=== PATIENT | female | born 1985 | race Two or more races ===

== ENCOUNTER 2018-06-09 19:24 | Emergency (ER) | payer MEDICAID ==
[~2018-06-09] VITALS: Ht 175.3 cm; Wt 74.8 kg
[~2018-06-09 19:24] MED LIST: PRENTAB28 PO
[2018-06-09 20:16] LABS: Urine Bacteria FEW /hpf (None Seen); Urine Blood 1+ /uL (Negative); Urine Specific Gravity 1.021 (1.001-1.035); Urine WBC 1 /hpf (0 - 5)
[2018-06-09 20:44] LABS: Basophils # (auto) 0.1 uL; Basophils % (auto) 0.4 % (0.0-2.0); Eosinophils # (auto) 0.2 uL; Eosinophils % (auto) 1.4 % (0.0-7.0); Hematocrit 40.2 % (36.0-46.0); Hemoglobin 13.1 g/dL (12.2-16.2); Lymphocytes # (auto) 1.8 uL; Lymphocytes % (auto) 14.7 % (10.0-50.0); Mean Corpuscular Hemoglobin 28.3 pg (28.0-32.0); Mean Corpuscular Hgb Conc. 32.6 g/dL (32.0-36.0); Mean Corpuscular Volume 86.8 fL (80.0-100.0); Monocytes # (auto) 0.7 uL; Monocytes % (auto) 5.7 % (0.0-12.0); Neutrophils # (auto) 9.5 uL; Neutrophils % (auto) 77.8 % (37.0-80.0); Platelet Count (auto) 268 10^3/uL (140-450); Red Blood Cells 4.63 10^6/uL (4.0-5.20); Red Cell Distribution Width 13.3 % (11.8-14.3); White Blood Cell 12.2 10^3/uL (4.4-10.8)
[2018-06-09 20:59] LABS: Albumin 3.7 g/dL (3.4-5.0); BUN/Creatinine Ratio 19.2; Calcium 8.2 mg/dL (8.5-10.1); Potassium 3.1 mmol/L (3.5-5.1)
[2018-06-09 21:02] LABS: Bilirubin, Total 0.3 mg/dL (0.2-1.0)
[2018-06-10] MEDS ORDERED: KETOROLAC TROMETH 60MG/2ML VIAL IM ONE (06:30)
[2018-06-10 06:44] VITALS: BP 100/68
[2018-06-10] MEDS ORDERED: FAMOTIDINE 20 MG TAB PO ONE (08:00)
[2018-06-10] MEDS ORDERED: POTASSIUM EFFERVESENT TAB 25 MEQ PO ONE (08:00)
== END 2018-06-10 08:30 | disposition home or self-care (01) ==
LOC: EDBD 19:24 → ER 19:27
DX: K59.00 Constipation, unspecified (principal); E87.6 Hypokalemia; K76.0 Fatty (change of) liver, not elsewhere classified
CPT/HCPCS: 36415; 76705; 80053; 81001; 82150; 83690; 84702; 85025; 96372; 99284; J1885

== ENCOUNTER → 2019-02-02 | Outpatient (CLI) | payer OTHER | END | disposition home or self-care (01) | LOC: LAB 09:31 | PROVIDERS: ATTEND Preventive Medicine Preventive Medicine/Occupational Environmental Medicine | DX: Z02.1 Encounter for pre-employment examination (principal) | CPT/HCPCS: 36415; 86706; 86735; 86762; 86765; 86787 ==

== ENCOUNTER 2020-04-20 18:13 | Emergency (ER) | payer OTHER ==
[~2020-04-20] VITALS: Ht 149.9 cm; Wt 74.8 kg
[2020-04-20] MEDS ORDERED: ACETAMINOPHEN 500 MG TAB PO ONE (23:15)
[2020-04-21 01:16] VITALS: BP 104/68
== END 2020-04-21 01:20 | disposition home or self-care (01) ==
LOC: ER 18:15
DX: S16.1XXA Strain of muscle, fascia and tendon at neck level, initial encounter (principal); S40.012A Contusion of left shoulder, initial encounter; S40.011A Contusion of right shoulder, initial encounter; R51.9 Headache, unspecified; M62.838 Other muscle spasm; Z79.899 Other long term (current) drug therapy; W20.8XXA Other cause of strike by thrown, projected or falling object, initial encounter; Y93.89 Activity, other specified; Y92.89 Other specified places as the place of occurrence of the external cause; Y99.8 Other external cause status
CPT/HCPCS: 70450; 72125; 73030

== ENCOUNTER 2021-06-29 17:20 | Emergency (ER) | payer OTHER ==
[~2021-06-29] VITALS: Ht 149.9 cm; Wt 81.6 kg
[2021-06-29] MEDS ORDERED: TETANUS-DIPTH-ACEL PERTUSSIS 0.5ML SYR Tdap IM ONE (18:45)
[2021-06-29 19:50] VITALS: BP 112/71
== END 2021-06-29 21:56 | disposition home or self-care (01) ==
LOC: ER 17:20
DX: S61.232A Puncture wound without foreign body of right middle finger without damage to nail, initial encounter (principal); X58.XXXA Exposure to other specified factors, initial encounter; Y93.89 Activity, other specified; Y92.89 Other specified places as the place of occurrence of the external cause; Y99.8 Other external cause status
CPT/HCPCS: 90471; 90715

== ENCOUNTER 2023-03-21 21:51 | Emergency (ER) | payer MEDICAID, OTHER ==
[~2023-03-21] VITALS: Ht 149.9 cm; Wt 72.0 kg
[2023-03-21] MEDS ORDERED: FAMOTIDINE (10MG/ML) 2ML VL IV ONE (22:00)
[2023-03-21] MEDS ORDERED: ALBUTEROL SULF 2.5 MG/0.5ML(0.5%) NEB SOLN NEB ONE (22:00)
[2023-03-21] MEDS ORDERED: EPINEPHrine HCL 0.5 ML NEB NEB ONE (22:00)
[2023-03-21] MEDS ORDERED: methylPREDNISolone SOD SUCC 125 MG/2 ML VL IV ONE (22:00)
[2023-03-21] MEDS ORDERED: diphenhdrAMINE HCL 50 MG/1 ML VL IV ONE (22:00)
[2023-03-21] MEDS ORDERED: IPRATROPIUM BROM 0.5 MG/2.5ML INH SOL NEB ONE (22:00)
[2023-03-21 22:26] LABS: Basophils # (auto) 0.1 10 ^3/uL (0-0.2); Basophils % (auto) 0.4 % (0.0-2.0); Eosinophils # (auto) 0.2 10 ^3/uL (0-0.8); Eosinophils % (auto) 1.4 % (0.0-7.0); Hematocrit 38.6 % (36.0-46.0); Hemoglobin 12.5 g/dL (12.2-16.2); Lymphocytes # (auto) 4.9 10 ^3/uL (0.4-5.4); Lymphocytes % (auto) 34.3 % (10.0-50.0); Mean Corpuscular Hemoglobin 27.8 pg (28.0-32.0); Mean Corpuscular Hgb Conc. 32.4 g/dL (32.0-36.0); Mean Corpuscular Volume 85.7 fL (80.0-100.0); Monocytes # (auto) 0.9 10 ^3/uL (0-1.3); Monocytes % (auto) 6.2 % (0.0-12.0); Neutrophils # (auto) 8.2 10 ^3/uL (1.6-8.6); Neutrophils % (auto) 57.7 % (37.0-80.0); Nucleated Red Blood Cells % 0.1 %; Red Cell Distribution Width 14.4 % (11.8-14.3); White Blood Cell 14.2 10^3/uL (4.4-10.8)
[2023-03-21 22:35] LABS: INR 0.92 (0.9-1.15); Partial Thromboplastin Time 26.9 SEC (24.5-34.5); Prothrombin Time 9.7 sec (9.3-11.8)
[2023-03-21 22:37] LABS: Alanine Aminotransferase 93 U/L (7-40); Albumin 4.8 g/dL (3.2-4.8); Alkaline Phosphatase 90 U/L (46-116); Anion Gap 8 (5-15); Aspartate Aminotransferase 38 U/L (13-40); BUN/Creatinine Ratio 11.9 (10.0-20.0); Bilirubin, Total 0.5 mg/dL (0.2-1.0); Blood Urea Nitrogen 10 mg/dL (9-23); Carbon Dioxide 26 mmol/L (20-30); Chloride 103 mmol/L (98-107); Glucose 93 mg/dL (74-106); Magnesium 2.1 mg/dL (1.6-2.6); Potassium 3.3 mmol/L (3.5-5.1); Sodium 137 mmol/L (136-145); Total Protein 7.7 g/dL (5.7-8.2)
[2023-03-22] MEDS ORDERED: DIPH25CA66 PO (02:42)
[2023-03-22] MEDS ORDERED: PRED20TA2 PO ×2 (02:46→03:07)
[2023-03-22 04:00] VITALS: BP 111/67; PULSE 87; RESP 18; TEMP 98.4; O2SAT 95
== END 2023-03-22 04:06 | disposition home or self-care (01) ==
LOC: ER 21:51
DX: T78.49XA Other allergy, initial encounter (principal); Z79.899 Other long term (current) drug therapy; X58.XXXA Exposure to other specified factors, initial encounter
CPT/HCPCS: 36415; 71045; 80053; 83735; 83880; 84484; 85025; 85610; 85730; 93005; 94640; 96374; 96375; 99285; J1200; J2930; J3490

== ENCOUNTER → 2023-06-07 | Outpatient (CLI) | payer MEDICAID ==
[~2023-06-07] MED LIST changes: +DIPH25CA66 PO; +PRED20TA2 PO
[2023-06-07 09:47] LABS: Basophils # (auto) 0.1 10 ^3/uL (0-0.2); Basophils % (auto) 0.6 % (0.0-2.0); Eosinophils # (auto) 0.2 10 ^3/uL (0-0.8); Eosinophils % (auto) 1.3 % (0.0-7.0); Hematocrit 38.5 % (36.0-46.0); Hemoglobin 12.8 g/dL (12.2-16.2); Lymphocytes # (auto) 3.9 10 ^3/uL (0.4-5.4); Lymphocytes % (auto) 30.6 % (10.0-50.0); Mean Corpuscular Hemoglobin 28.5 pg (28.0-32.0); Mean Corpuscular Hgb Conc. 33.2 g/dL (32.0-36.0); Mean Corpuscular Volume 85.7 fL (80.0-100.0); Monocytes # (auto) 0.8 10 ^3/uL (0-1.3); Monocytes % (auto) 6.1 % (0.0-12.0); Neutrophils # (auto) 7.7 10 ^3/uL (1.6-8.6); Neutrophils % (auto) 61.4 % (37.0-80.0); Red Blood Cells 4.49 10^6/uL (4.0-5.20); Red Cell Distribution Width 13.9 % (11.8-14.3); White Blood Cell 12.6 10^3/uL (4.4-10.8)
[2023-06-07 10:19] LABS: Follicle Stimulating Hormone 3.08 IU/L (SEE BELOW)
== END | disposition home or self-care (01) ==
LOC: LAB 09:23
PROVIDERS: ATTEND Obstetrics & Gynecology
DX: N92.6 Irregular menstruation, unspecified (principal)
CPT/HCPCS: 36415; 82670; 83001; 83002; 83036; 84403; 84443; 85025

== ENCOUNTER 2023-10-14 12:39 | Emergency (ER) | payer MEDICAID ==
[~2023-10-14] VITALS: Ht 149.9 cm; Wt 79.3 kg
[2023-10-14 13:44] LABS: Basophils # (auto) 0.1 10 ^3/uL (0-0.2); Basophils % (auto) 0.6 % (0.0-2.0); Eosinophils # (auto) 0.1 10 ^3/uL (0-0.8); Eosinophils % (auto) 0.8 % (0.0-7.0); Hematocrit 39.4 % (36.0-46.0); Hemoglobin 13.3 g/dL (12.2-16.2); Lymphocytes # (auto) 1.7 10 ^3/uL (0.4-5.4); Lymphocytes % (auto) 18.5 % (10.0-50.0); Mean Corpuscular Hemoglobin 28.5 pg (28.0-32.0); Mean Corpuscular Hgb Conc. 33.8 g/dL (32.0-36.0); Mean Corpuscular Volume 84.5 fL (80.0-100.0); Monocytes # (auto) 0.9 10 ^3/uL (0-1.3); Monocytes % (auto) 9.9 % (0.0-12.0); Neutrophils # (auto) 6.6 10 ^3/uL (1.6-8.6); Neutrophils % (auto) 70.2 % (37.0-80.0); Red Blood Cells 4.66 10^6/uL (4.0-5.20); Red Cell Distribution Width 13.6 % (11.8-14.3); White Blood Cell 9.4 10^3/uL (4.4-10.8)
[2023-10-14 13:55] LABS: Urine Bacteria None Seen /hpf (None Seen)
[2023-10-14] MEDS: KETOROLAC TROMETH 60MG/2ML VIAL IM ONE (13:56)
[2023-10-14 14:08] LABS: Urine Blood 2+ /uL (Negative); Urine Clarity Clear (Clear); Urine Color Colorless (Yellow); Urine Protein, UAD Negative (Negative); Urine Specific Gravity 1.011 (1.001-1.035); Urine Urobilinogen Normal (Negative); Urine WBC 1 /hpf (0 - 5)
[2023-10-14 14:37] LABS: Chloride 107 mmol/L (98-107); Potassium 3.8 mmol/L (3.5-5.1); Sodium 136 mmol/L (136-145)
[2023-10-14 14:38] LABS: Anion Gap 8 (5-15); Carbon Dioxide 21 mmol/L (20-30)
[2023-10-14 14:39] LABS: Calcium 9.1 mg/dL (8.7-10.4)
[2023-10-14 14:43] LABS: Glucose 119 mg/dL (74-106)
[2023-10-14 14:44] LABS: Blood Urea Nitrogen 8 mg/dL (9-23)
[2023-10-14 15:03] VITALS: TEMP 98.3; O2SAT 97
[2023-10-14] MEDS: ONDANSETRON HCL 4 MG/2 ML VIAL IV ONE (15:31)
[2023-10-14] MEDS: HYDROmorphone HCL 2 MG/ML VL/or syr IV ONE (15:33)
[2023-10-14] MEDS: SODIUM CHLORIDE 0.9% 1,000 ML IV ONE (15:39)
[2023-10-14 16:03] VITALS: BP 98/66; PULSE 65; RESP 18
[2023-10-14] MEDS: TAMSULOSIN HYDROCHLORIDE 0.4 MG CAP PO ONE (16:06)
[2023-10-14] MEDS ORDERED: TAMS-35 PO (16:16)
[2023-10-14] MEDS ORDERED: TRAM-626 PO (16:16)
[2023-10-14] MEDS ORDERED: HYDR-4902 PO (16:19)
== END 2023-10-14 16:38 | disposition home or self-care (01) ==
LOC: ER 12:39 → EEVIPCON 12:39 → ER 16:34
DX: N20.0 Calculus of kidney (principal); R05.9 Cough, unspecified; R09.81 Nasal congestion
CPT/HCPCS: 36415; 71046; 74176; 80048; 81001; 84484; 85025; 96361; 96372; 96374; 96375; 99285; J1170; J1885; J2405; J7030

== ENCOUNTER 2023-10-15 13:47 | Inpatient (IN) | payer MEDICAID ==
[~2023-10-15] VITALS: Ht 149.9 cm; Wt 70.5 kg
[~2023-10-15 13:47] MED LIST changes: +HYDR-4902 PO; +TAMS-35 PO
[2023-10-15 14:37] LABS: Basophils # (auto) 0 10 ^3/uL (0-0.2); Basophils % (auto) 0.5 % (0.0-2.0); Eosinophils # (auto) 0.1 10 ^3/uL (0-0.8); Eosinophils % (auto) 1.3 % (0.0-7.0); Hematocrit 36.1 % (36.0-46.0); Hemoglobin 12.1 g/dL (12.2-16.2); Lymphocytes # (auto) 2.6 10 ^3/uL (0.4-5.4); Lymphocytes % (auto) 25.9 % (10.0-50.0); Mean Corpuscular Hemoglobin 28.2 pg (28.0-32.0); Mean Corpuscular Hgb Conc. 33.5 g/dL (32.0-36.0); Mean Corpuscular Volume 84.4 fL (80.0-100.0); Monocytes # (auto) 0.7 10 ^3/uL (0-1.3); Monocytes % (auto) 6.5 % (0.0-12.0); Neutrophils # (auto) 6.7 10 ^3/uL (1.6-8.6); Neutrophils % (auto) 65.8 % (37.0-80.0); Red Blood Cells 4.28 10^6/uL (4.0-5.20); Red Cell Distribution Width 13.9 % (11.8-14.3); White Blood Cell 10.1 10^3/uL (4.4-10.8)
[2023-10-15 14:48] LABS: Chloride 107 mmol/L (98-107); Potassium 3.7 mmol/L (3.5-5.1); Sodium 137 mmol/L (136-145)
[2023-10-15 14:49] LABS: Anion Gap 6 (5-15); Carbon Dioxide 24 mmol/L (20-30)
[2023-10-15 14:54] LABS: Glucose 116 mg/dL (74-106)
[2023-10-15] MEDS ORDERED: cefTRIAXone SOD 1,000 MG VL IM ONE (15:00)
[2023-10-15] MEDS: KETOROLAC TROMETH 30 MG/ML 1ML VIAL IV ONE (15:16)
[2023-10-15] MEDS: SODIUM CHLORIDE 0.9% 1,000 ML IV ONE (15:16)
[2023-10-15 15:21] VITALS: PULSE 110; RESP 18; O2SAT 97
[2023-10-15 15:30] LABS: BUN/Creatinine Ratio 13.5 (10.0-20.0); Blood Urea Nitrogen 10 mg/dL (9-23)
[2023-10-15 15:30] LABS: Amphetamine Screen, Urine Neg (NEGATIVE); Barbiturate Scree,Urine Neg (NEGATIVE); Benzodiazephine Screen, Urine Neg (NEGATIVE); Cannabinoid Screen, Urine Neg (NEGATIVE); Cocaine Screen, Urine Neg (NEGATIVE); Opiate Scree,Urine Neg (NEGATIVE); Phencyclidine Screen, Urine Neg (NEGATIVE)
[2023-10-15 15:34] LABS: Urine Bacteria FEW /hpf (None Seen); Urine Blood TRACE /uL (Negative); Urine Clarity Clear (Clear); Urine Color Colorless (Yellow); Urine Protein, UAD Negative (Negative); Urine Specific Gravity 1.002 (1.001-1.035); Urine Urobilinogen Normal (Negative); Urine WBC 1 /hpf (0 - 5)
[2023-10-15] MEDS ORDERED: ACETAMINOPHEN 325 MG TAB PO PRN (17:30)
[2023-10-15] MEDS ORDERED: DOCUSATE SOD 100 MG CAP PO PRN (17:30)
[2023-10-15 19:56] VITALS: PULSE 67; RESP 16; O2SAT 100
[2023-10-15] MEDS: LACTATED RINGER'S 1,000 ML IV SCH (20:00)
[2023-10-15 21:56] VITALS: BP 113/76; PULSE 77; RESP 18; TEMP 98.1; O2SAT 97
[2023-10-15] MEDS: SODIUM CHLOR 0.9% PF (SALINE LOCK) 10ML VIAL/SYR IV SCH (23:29)
[2023-10-15] MEDS: MORPHINE SULFATE INJ 2 MG/ml SYRG IV PRN (23:54)
[2023-10-16] VITALS (8 sets, daily range): BP systolic 88–119; BP diastolic 53–74; PULSE 60–79; RESP 16–19; TEMP 97.8–98.5; O2SAT 96–99
[2023-10-16] MEDS: KETOROLAC TROMETH 30 MG/ML 1ML VIAL IV PRN (08:57)
[2023-10-16] MEDS: ENOXAPARIN SOD 40 MG/0.4 ML SYRINGE SC SCH (11:56)
[2023-10-16] MEDS: TAMSULOSIN HYDROCHLORIDE 0.4 MG CAP PO SCH (18:01)
[2023-10-16] MEDS: MANNITOL FTV 25% 12.5 GM/50 ML 50 ML IV ONE (23:14)
[2023-10-17] VITALS (9 sets, daily range): BP systolic 93–126; BP diastolic 56–74; PULSE 64–99; RESP 16–20; TEMP 97.5–98.5; O2SAT 95–100
[2023-10-17 09:56] LABS: Hepatitis B Surface Antigen Negative (Negative)
[2023-10-17] MEDS: SODIUM CHLORIDE 0.9% 1,000 ML IV SCH (10:00)
[2023-10-17] MEDS: PANTOPRAZOLE 40 MG TAB PO ONE (10:15)
[2023-10-17 10:18] LABS: Hepatitis C Antibody Negative (Negative)
[2023-10-17] MEDS ORDERED: traMADol HCL 50 MG TAB PO PRN (12:45)
[2023-10-17] MEDS ORDERED: MORPHINE SULFATE INJ 2 MG/ml SYRG IV PRN (12:45)
[2023-10-17] MEDS ORDERED: fentaNYL CITRATE 100 MCG/2 ML VL ONE (15:08)
[2023-10-17] MEDS ORDERED: MIDAZOLAM HCL 2MG/2ML 2ml VIAL (1mg/ml) ONE (15:08)
[2023-10-17] MEDS ORDERED: ONDANSETRON HCL 4 MG/2 ML VIAL ONE (15:09)
[2023-10-17] MEDS ORDERED: KETOROLAC TROMETH 30 MG/ML 1ML VIAL ONE (15:09)
[2023-10-17] MEDS ORDERED: DexAMETHasone SOD PHOS 10MG/1ML VIAL INJ ONE (15:09)
[2023-10-17] MEDS ORDERED: ePHEDrine SULFATE 50 MG/ML AMP ONE (15:09)
[2023-10-17] MEDS ORDERED: GLYCOPYRROLATE 0.2 MG/ML 1ML VIAL ONE (15:09)
[2023-10-17] MEDS ORDERED: LIDOCAINE 2% (LOCAL ANESTH.) PF 5ml SDV ONE (15:09)
[2023-10-17] MEDS ORDERED: PROPOFOL 10 MG/ML 20 ML IV ONE (15:09)
[2023-10-17] MEDS: SUCCINYLCHOLINE CHLORIDE 20 MG/ML 10ML VIAL IV ONE (15:16)
[2023-10-17] MEDS: FAMOTIDINE (10MG/ML) 2ML VL IV ONE (15:16)
[2023-10-17] MEDS: CIPROFLOXACIN 400MG/200ML 200 ML IV ONE (15:22)
[2023-10-17] MEDS ORDERED: MEPERIDINE HCL (50 MG/ML) 1 ML VIAL ONE (15:41)
[2023-10-17] MEDS: MANNITOL FTV 25% 12.5 GM/50 ML 50 ML IV ONE (16:15)
[2023-10-17] MEDS: ONDANSETRON HCL 4 MG/2 ML VIAL IV ONE (16:30)
[2023-10-17] MEDS ORDERED: HYDROmorphone HCL 2 MG/ML VL/or syr IV PRN (16:30)
[2023-10-17 19:10] LABS: Chloride 107 mmol/L (98-107); Potassium 3.6 mmol/L (3.5-5.1); Sodium 138 mmol/L (136-145)
[2023-10-17 19:11] LABS: Anion Gap 6 (5-15); Carbon Dioxide 25 mmol/L (20-30)
[2023-10-17 19:16] LABS: Blood Urea Nitrogen 7 mg/dL (9-23); Glucose 129 mg/dL (74-106)
[2023-10-18 01:00] VITALS: BP 108/63; PULSE 80; RESP 16; TEMP 98.1; O2SAT 97
[2023-10-18 05:00] VITALS: BP 105/64; PULSE 71; RESP 16; TEMP 98.6; O2SAT 95
[2023-10-18] MEDS: PANTOPRAZOLE 40 MG TAB PO SCH (06:16)
[2023-10-18 06:56] LABS: Chloride 107 mmol/L (98-107); Potassium 4.1 mmol/L (3.5-5.1); Sodium 139 mmol/L (136-145)
[2023-10-18 06:57] LABS: Anion Gap 7 (5-15); Calcium 9.2 mg/dL (8.7-10.4); Carbon Dioxide 25 mmol/L (20-30)
[2023-10-18 07:02] LABS: Blood Urea Nitrogen 8 mg/dL (9-23); Glucose 123 mg/dL (74-106)
[2023-10-18 08:00] VITALS: PULSE 87; RESP 20; O2SAT 97
[2023-10-18 09:00] VITALS: BP 113/68; PULSE 70; RESP 20; TEMP 97.7; O2SAT 100
[2023-10-18] MEDS ORDERED: LEVO500T91 PO (11:42)
[2023-10-18] MEDS ORDERED: KETO10TA PO (11:42)
[2023-10-18 13:00] VITALS: BP 95/63; PULSE 94; RESP 20; TEMP 98.3; O2SAT 98
[2023-10-18 14:52] VITALS: BP 120/68; PULSE 78; RESP 20; TEMP 98.3; O2SAT 97
== END 2023-10-18 16:00 | disposition home or self-care (01) | DRG 463 ==
LOC: EEVIPCON 13:47 → ER 13:51 → OVERFLOW 17:30 → CENTRAL 21:49
PROVIDERS: ADMIT Internal Medicine; ATTEND Emergency Medicine
PROC: 0TF7XZZ Fragmentation in Left Ureter, External Approach (ICD-10-PCS; principal; 2023-10-17 15:26)
DX: N13.6 Pyonephrosis (principal); K76.0 Fatty (change of) liver, not elsewhere classified; R16.0 Hepatomegaly, not elsewhere classified; I95.9 Hypotension, unspecified; F41.9 Anxiety disorder, unspecified; N28.1 Cyst of kidney, acquired; E66.9 Obesity, unspecified; Z79.899 Other long term (current) drug therapy; Z87.442 Personal history of urinary calculi; Z82.0 Family history of epilepsy and other diseases of the nervous system; Z83.3 Family history of diabetes mellitus
CPT/HCPCS: 36415; 80048; 80307; 81001; 81025; 82105; 84702; 85025; 86803; 87086; 87340; G0378; J0330; J1100; J1885; J2001; J2250; J2405; J2704; J3490

== ENCOUNTER → 2023-11-02 | Outpatient (CLI) | payer MEDICAID ==
[~2023-11-02] MED LIST changes: -DIPH25CA66 PO; +KETO10TA PO; +LEVO500T91 PO; -PRED20TA2 PO; -PRENTAB28 PO
[2023-11-02 15:12] LABS: Basophils # (auto) 0 10 ^3/uL (0-0.2); Basophils % (auto) 0.5 % (0.0-2.0); Eosinophils # (auto) 0.1 10 ^3/uL (0-0.8); Eosinophils % (auto) 1.5 % (0.0-7.0); Hematocrit 35.1 % (36.0-46.0); Hemoglobin 11.8 g/dL (12.2-16.2); Lymphocytes # (auto) 2.6 10 ^3/uL (0.4-5.4); Lymphocytes % (auto) 26.1 % (10.0-50.0); Mean Corpuscular Hemoglobin 28.1 pg (28.0-32.0); Mean Corpuscular Hgb Conc. 33.6 g/dL (32.0-36.0); Mean Corpuscular Volume 83.4 fL (80.0-100.0); Monocytes # (auto) 0.5 10 ^3/uL (0-1.3); Monocytes % (auto) 5.5 % (0.0-12.0); Neutrophils # (auto) 6.5 10 ^3/uL (1.6-8.6); Neutrophils % (auto) 66.4 % (37.0-80.0); Red Blood Cells 4.21 10^6/uL (4.0-5.20); Red Cell Distribution Width 13.9 % (11.8-14.3); White Blood Cell 9.8 10^3/uL (4.4-10.8)
[2023-11-02 15:55] LABS: Alanine Aminotransferase 72 U/L (7-40); Albumin 4.5 g/dL (3.2-4.8); Alkaline Phosphatase 97 U/L (46-116); Anion Gap 8 (5-15); Aspartate Aminotransferase 38 U/L (13-40); BUN/Creatinine Ratio 12.9 (10.0-20.0); Blood Urea Nitrogen 9 mg/dL (9-23); Calcium 9.5 mg/dL (8.7-10.4); Carbon Dioxide 24 mmol/L (20-30); Chloride 108 mmol/L (98-107); Cholesterol 193 mg/dL (< 200); Glucose 107 mg/dL (74-106); HDL Cholesterol 42 mg/dL (40-59); LDL Cholesterol 139 mg/dL (< 100); Potassium 3.8 mmol/L (3.5-5.1); Sodium 140 mmol/L (136-145); Triglycerides 64 mg/dL (< 150)
[2023-11-02 15:56] LABS: Bilirubin, Total 0.9 mg/dL (0.2-1.0); Total Protein 7.4 g/dL (5.7-8.2)
== END | disposition home or self-care (01) ==
LOC: LAB 14:28
PROVIDERS: ATTEND Nurse Practitioner
DX: I10 Essential (primary) hypertension (principal); R73.9 Hyperglycemia, unspecified; E78.5 Hyperlipidemia, unspecified; E03.9 Hypothyroidism, unspecified
CPT/HCPCS: 36415; 80053; 80061; 83036; 84443; 85025

== ENCOUNTER 2024-09-09 06:23 | Emergency (ER) | payer MEDICAID ==
[~2024-09-09] VITALS: Ht 149.9 cm; Wt 72.7 kg
[2024-09-09] MEDS: KETOROLAC TROMETH 30 MG/ML 1ML VIAL IM ONE (06:45)
--- NOTE | 2024-09-09 07:01 | ED.PDOC ---
General HPI Comments 39 y/o F, with PMHx of kidney stones presents to the ED for CC of left lower back, radiating to left upper thigh. no fever or nausea, or vomiting. No other symptoms or modifying factors present at this time. pain is worsened by lateral rotation, improves with flexion of torso. Chief Complaint: Flank Pain Time Seen by MD: 06:50 Primary Care Provider: ? Reviewed notes: Nurses Notes, Medications, Allergies Allergies: Coded Allergies: NO KNOWN ALLERGIES (Unverified , 10/04/14) Home Meds Active Scripts Ketorolac Tromethamine (Ketorolac Tromethamine) 10 Mg Tab, 1 TAB PO TID PRN for 5 Days, #15 TAB Prov:BREANNA EGAN MD 10/18/23 Levofloxacin Hemihydrate (LEVAQUIN 500 MG) 500 Mg Tab, 500 MG PO DAILY for 5 Days, #5 TAB Prov:BREANNA EGAN MD 10/18/23 Tamsulosin Hcl (Flomax) 0.4 Mg Cap, 1 CAP PO DAILY, #20 CAP Prov:LEONIE GARRISON 10/14/23 Hydrocodone-Acetaminophen (Hydrocodone Bitartrate/AC 5-325 mg) 1 Tab Tab, 1 TAB PO TID, #14 TAB Prov:LEONIE GARRISON 10/14/23 Information Source: Patient Mode of Arrival: Ambulatory Severity: Moderate Inability to void: None Timing: Days Duration: Since onset Prehospital treatment: None Onset: Spontaneous Symptoms: None History of: Kidney stone Location: (L)Flank Modifying factors: None associated signs and symptoms: Flank Pain, Back Pain Past Medical History PAST MEDICAL HISTORY: Anxiety, Kidney Stones Surgical History: Denies all surgeries OUTPATIENT RECEPTIONIST History: Denies all OUTPATIENT RECEPTIONIST Hx Family History Family History: Reviewed,noncontributory to illness Social History Smoker: Non-Smoker Alcohol: Denies ETOH Use Drugs: Denies Drug Use Lives In: Home Constitutional: denies: chills, diaphoresis, fatigue, fever, malaise, sweats, weakness, others EENTM: denies: blurred vision, double vision, ear bleeding, ear discharge, ear drainage, ear pain, ear ringing, eye pain, eye redness, hearing loss, mouth pain, mouth swelling, nasal discharge, nose bleeding, nose congestion, nose pain, photophobia, tearing, throat pain, throat swelling, voice changes, others Respiratory: denies: cough, hemoptysis, orthopnea, SOB at rest, shortness of breath, SOB with excertion, stridor, wheezing, others Cardiovascular: denies: chest pain, dizzy spells, diaphoresis, Dyspnea on exertion, edema, irregular heart beat, left arm pain, lightheadedness, palpitations, PND, syncope, others Gastrointestinal: denies: abdomen distended, abdominal pain, blood streaked bowels, constipated, diarrhea, dysphagia, difficulty swallowing, hematemesis, melena, nausea, poor appetite, poor fluid intake, rectal bleeding, rectal pain, vomiting, others Genitourinary: reports: flank pain; denies: abnormal vagina bleeding, burning, dyspareunia, dysuria, frequency, hematuria, incontinence, pain, , vagina discharge, urgency, others Neurological: denies: dizziness, fainting, headache, left sided numbness, left sided weakness, numbness, paresthesia, pre-existing deficit, right sided numbness, right sided weakness, seizure, speech problems, tingling, tremors, weakness, others Musculoskeletal: reports: back pain; denies: gout, joint pain, joint swelling, muscle pain, muscle stiffness, neck pain, others Integumetry: denies: bruises, change in color, change in hair/nails, dryness, laceration, lesions, lumps, rash, wounds, others Allergic/Immunocompromised: denies: Difficulty Healing, Frequent Infections, Hives, Itching, others Hematologic/Lymphatic: denies: anemia, blood clots, easy bleeding, easy bruising, swollen glands, others Endocrine: denies: excessive hunger, excessive sweating, excessive thirst, excessive urination, flushing, intolerance to cold, intolerance to heat, unexplained weight gain, unexplained weight loss, others Psychiatric: denies: anxiety, bipolar disorder, depression, hopeless, panic disorder, schizophrenia, sleepless, suicidal, others All Other Systems: Reviewed and Negative Physical Exam General Appearance: No Apparent Distress, Normal HEENT: Normal ENT Inspection, Pharynx Normal Neck: Full Range of Motion, Non-Tender, Normal, Normal Inspection Respiratory: Chest Non-Tender, Lungs Clear, No Accessory Muscle Use, No Respiratory Distress, Normal Breath Sounds Cardiovascular: No Edema, No Murmur, No Gallop, Normal Peripheral Pulses, Regular Rate/Rhythm Breast Exam: Deferred Gastrointestinal: No Organomegaly, Non Tender, No Pulsatile Mass, Normal Bowel Sounds, Soft Genitalia: Deferred Pelvic: Deferred Rectal: Deferred Extremities: No calf tenderness, Normal capillary refill, Normal inspection, Normal range of motion, Non-tender, No pedal edema Musculoskeletal : Location: Left (lumbar) Apperance: Normal Neurologic: Alert, director of labor and delivery II-XII nml as Tested, No Motor Deficits, Normal Affect, Normal Mood, No Sensory Deficits Cerebellar Function: Normal Reflexes: Normal Skin: Dry, Normal Color, Warm Lymphatic: No Adenopathy Was a procedure done? Was a procedure done?: No Differential Diagnosis Kidney stone (Female): N/A Kidney stone (Male): N/A Penile/Scrotal: N/A Urinary Problem (Male): N/A Urinary Problem (Female): Pyelonephritis, Urinary retention, Urolithiasis, UTI, Other (back strain, sciatica, herniated disc,zoster) X-Ray, Labs, Meds, VS Vital Signs Date Time Temp Pulse Resp B/P (MAP) Pulse Ox O2 Delivery O2 Flow Rate FiO2 09/09/24 06:23 98.2 73 18 125/71 (89) 98 98.2 Lab Test 09/09/24 08:00 Range/Units Urine Color Light-yellow Yellow Urine Clarity Clear Clear Urine pH 6.0 5.0-9.0 Urine Specific [place] 1.012 1.001-1.035 Urine Protein Negative Negative Urine Ketones Negative Negative Urine Blood Negative Negative /uL Urine Nitrite Negative Negative Urine Bilirubin Negative Negative Urine Urobilinogen Normal Negative mg/dL Urine Leukocyte Esterase Negative Negative /uL Urine RBC 1 0 - 4 /hpf Urine Microscopic WBC 2 0-5 /HPF Urine Squamous Epithelial Cells Few <5 /hpf Urine Bacteria Few H None Seen /hpf Urine Glucose Normal Normal mg/dL Urine Test Negative Negative Current Medications Medications (Trade) Dose Ordered Sig/Beck Route Start Time Stop Time Status Last Admin Ketorolac Tromethamine (Toradol Injection) 15 mg ONCE ONCE IM 09/09/24 06:45 09/09/24 06:47 DC 09/09/24 06:45 Time of 1ST Reevaluation: 07:20 Reevaluation 1ST: Unchanged Time of 2ND Reevaluation: 08:39 Reevaluation 2ND: Improved Patient Education/Counseling: Diagnosis, Treatment, Prognosis, Need For Follow Up Family Education/Counseling: No Family Present Comments pt dopes not have zoster lesions, she has no urinary symptoms. her urine is cl ear. l spine xray is unremarkable. her symptoms are consistent with lumbar pain with radiculopathy. i will start her on motrin and flexeril. she is to follow up with her doctor Additional Information Previous visits reviewed: 10/14/18 DX: HYDRONEPHROSIS W/ RENAL The following tests were ordered, and results were reviewed by me: UA, TEST, LUMBAR SPINE XR I reviewed and agreed with the following test results read by other providers: LUMBAR SPINE XR I discussed treatment and results with medical personnel and: patient Comprehensive systems review obtained and negative except for what is stated in the HPI. Departure 1 Departure Time of Disposition: 08:40 Impression: Primary Impression: Lumbalgia Qualified Codes: M54.42 - Lumbago with sciatica, left side Additional Impression: Radiculopathy Qualified Codes: M54.16 - Radiculopathy, lumbar region Disposition: HOME / SELF CARE / HOMELESS Condition: Good e-Prescriptions Cyclobenzaprine Hcl (Cyclobenzaprine Hcl) 10 Mg Tab 10 MG PO Q8HP PRN for 3 Days, #9 TAB Prov: EBONY IGNACIO MD 09/09/24 Ibuprofen Micronized (MOTRIN TABLET) 600 Mg Tb 600 MG PO TID PRN, #40 TAB *Black box warning-NSAIDS can increase risk of DC & hypertension, GI irritation, ulceration, bleed, perferation. Do not use post cardiac surgery. Use short duration/lowest effective dose. Prov: EBONY IGNACIO MD 09/09/24 Discharged With: Self Critical Care Note Critical Care Time?: No Stability Stability form required: No I personally scribed for EBONY IGNACIO MD ([email or web address]) on 09/09/24 at 07:01. Electr onically submitted by Nel Novak ([email or web address]). I personally scribed for EBONY IGNACIO MD ([email or web address]) on 09/09/24 at 07:19. Electronically submitted by Nel Novak ([email or web address]). EBONY IGNACIO MD Sep 09, 2024 07:01
[2024-09-09 08:00] VITALS: BP 129/80; PULSE 64; RESP 18; TEMP 98.3; O2SAT 100
[2024-09-09 08:18] LABS: Urine Bacteria FEW /hpf (None Seen); Urine Blood Negative /uL (Negative); Urine Clarity Clear (Clear); Urine Color Light-Yellow (Yellow); Urine Protein, UAD Negative (Negative); Urine Specific Gravity 1.012 (1.001-1.035); Urine Squamous Epithelial Cell FEW /hpf (<5); Urine Urobilinogen Normal (Negative); Urine WBC 2 /HPF (0-5)
[2024-09-09] MEDS ORDERED: CYCL-839 PO (08:42)
[2024-09-09] MEDS ORDERED: IBU600T PO (08:42)
--- NOTE | 2024-09-09 08:57 | DVH ---
XY LUMBAR SPINE 4+ VIEW, HISTORY: pain COMPARISON: None TECHNICAL DATA: Frontal and lateral views were obtained of the lumbar spine as well as bilateral obli que views . FINDINGS: There are 5 lumbar type vertebral bodies. Lumbar curvature is within normal limits. There is no spond ylolisthesis. Vertebral body heights are maintained. Disk heights are normal. The facet joints appear normal. The sacroiliac joints are symmetric. Paraspinal soft tissues are within normal limits. IMPRESSION: No acute fracture or dislocation of the lumbar spine.
== END 2024-09-09 09:14 | disposition home or self-care (01) ==
LOC: ER 06:23 → EEVIPCON 06:23 → ER 09:14
DX: M54.59 Other low back pain (principal); M54.16 Radiculopathy, lumbar region; Z87.442 Personal history of urinary calculi; F41.9 Anxiety disorder, unspecified; Z79.899 Other long term (current) drug therapy
CPT/HCPCS: 72110; 81001; 81025; 96372; 99284; J1885

== ENCOUNTER 2024-10-27 15:37 | Emergency (ER) | payer MEDICAID ==
[~2024-10-27] VITALS: Ht 149.9 cm; Wt 72.0 kg
[~2024-10-27 15:37] MED LIST changes: +CYCL-839 PO; +IBU600T PO
[2024-10-27 16:37] LABS: Hematocrit 37.9 % (36.0-46.0); Hemoglobin 12.8 g/dL (12.2-16.2); Mean Corpuscular Hemoglobin 28.7 pg (28.0-32.0); Mean Corpuscular Volume 84.5 fL (80.0-100.0); Nucleated Red Blood Cells % 0.0 %
[2024-10-27 16:41] LABS: Potassium 3.6 mmol/L (3.5-5.1); Sodium 139 mmol/L (136-145)
[2024-10-27 16:42] LABS: Anion Gap 7 (5-15); Carbon Dioxide 25 mmol/L (20-31)
[2024-10-27 16:47] LABS: BUN/Creatinine Ratio 15.9 (10.0-20.0); Blood Urea Nitrogen 10 mg/dL (9-23); Glucose 93 mg/dL (74-106)
[2024-10-27 16:50] LABS: Calcium 8.6 mg/dL (8.7-10.4); Chloride 107 mmol/L (98-107)
[2024-10-27] MEDS: KETOROLAC TROMETH 60MG/2ML VIAL IM ONE (17:35)
[2024-10-27 17:44] VITALS: BP 109/56; PULSE 74; RESP 16; TEMP 97.6; O2SAT 98
[2024-10-27 17:51] LABS: Urine Protein, UAD Negative (Negative)
[2024-10-27 19:06] LABS: COVID19 ANTIGEN SOFIA FIA POSITIVE (NEGATIVE)
[2024-10-27] MEDS ORDERED: ACET500T58 PO (19:30)
[2024-10-27] MEDS ORDERED: IBUP-1454 PO (19:30)
--- NOTE | 2024-10-27 19:30 | ED.PDOC ---
History of Present Illness HPI Comments This patient is a otherwise healthy 31-year-old female who arrives the ED today for evaluation of generalized body ache concerns that weakness for the past five days. Patient states the symptoms came on and has been unrelenting. Patient states she has basically been bed-bound sleeping for the past five days. Patient denies any fever nausea or vomiting. Vital signs were stable on arrival. Chief Complaint: Body Pain Time Seen by MD: 15:43 Primary Care Provider: ? Reviewed Notes: Nurses Notes Allergies: Coded Allergies: NO KNOWN ALLERGIES (Unverified , 10/04/14) Home Meds Active Scripts Cyclobenzaprine Hcl (Cyclobenzaprine Hcl) 10 Mg Tab, 10 MG PO Q8HP PRN for 3 Days, #9 TAB Prov:EBONY IGNACIO MD 09/09/24 Ibuprofen Micronized (MOTRIN TABLET) 600 Mg Tb, 600 MG PO TID PRN, #40 TAB *Black box warning-NSAIDS can increase risk of IA & hypertension, GI irritation, ulceration, bleed, perferation. Do not use post cardiac surgery. Use short duration/lowest effective dose. Prov:EBONY IGNACIO MD 09/09/24 Ketorolac Tromethamine (Ketorolac Tromethamine) 10 Mg Tab, 1 TAB PO TID PRN for 5 Days, #15 TAB Prov:BREANNA EGAN MD 10/18/23 Levofloxacin Hemihydrate (LEVAQUIN 500 MG) 500 Mg Tab, 500 MG PO DAILY for 5 Days, #5 TAB Prov:BREANNA EGAN MD 10/18/23 Tamsulosin Hcl (Flomax) 0.4 Mg Cap, 1 CAP PO DAILY, #20 CAP Prov:LEONIE GARRISON 10/14/23 Hydrocodone-Acetaminophen (Hydrocodone Bitartrate/AC 5-325 mg) 1 Tab Tab, 1 TAB PO TID, #14 TAB Prov:LEONIE GARRISON 10/14/23 Information Source: Patient Mode of Arrival: Ambulatory Severity: Moderate Timing: Days Duration: Since onset Prehospital treatment: None Past Medical History PAST MEDICAL HISTORY: Anxiety, Kidney Stones Surgical History: Denies all surgeries AIR AND WATER FILLER History: Denies all AIR AND WATER FILLER Hx Family History Family History: Reviewed,noncontributory to illness Social History Smoker: Non-Smoker Alcohol: Denies ETOH Use Drugs: Denies Drug Use Lives In: Home Constitutional: reports: fatigue, malaise, weakness; denies: chills, diaphoresis, fever, sweats, others EENTM: denies: blurred vision, double vision, ear bleeding, ear discharge, ear drainage, ear pain, ear ringing, eye pain, eye redness, hearing loss, mouth pain, mouth swelling, nasal discharge, nose bleeding, nose congestion, nose pain, photophobia, tearing, throat pain, throat swelling, voice changes, others Respiratory: denies: cough, hemoptysis, orthopnea, SOB at rest, shortness of breath, SOB with excertion, stridor, wheezing, others Cardiovascular: denies: chest pain, dizzy spells, diaphoresis, Dyspnea on exertion, edema, irregular heart beat, left arm pain, lightheadedness, palpitations, PND, syncope, others Gastrointestinal: denies: abdomen distended, abdominal pain, blood streaked bowels, constipated, diarrhea, dysphagia, difficulty swallowing, hematemesis, melena, nausea, poor appetite, poor fluid intake, rectal bleeding, rectal pain, vomiting, others Genitourinary: denies: abnormal vagina bleeding, burning, dyspareunia, dysuria, flank pain, frequency, hematuria, incontinence, pain, , vagina discharge, urgency, others Neurological: denies: dizziness, fainting, headache, left sided numbness, left sided weakness, numbness, paresthesia, pre-existing deficit, right sided numbness, right sided weakness, seizure, speech problems, tingling, tremors, weakness, others Musculoskeletal: denies: back pain, gout, joint pain, joint swelling, muscle pain, muscle stiffness, neck pain, others Integumetry: denies: bruises, change in color, change in hair/nails, dryness, laceration, lesions, lumps, rash, wounds, others Allergic/Immunocompromised: denies: Difficulty Healing, Frequent Infections, Hives, Itching, others Hematologic/Lymphatic: denies: anemia, blood clots, easy bleeding, easy bruising, swollen glands, others Endocrine: denies: excessive hunger, excessive sweating, excessive thirst, excessive urination, flushing, intolerance to cold, intolerance to heat, unexplained weight gain, unexplained weight loss, others Psychiatric: denies: anxiety, bipolar disorder, depression, hopeless, panic disorder, schizophrenia, sleepless, suicidal, others Physical Exam General Appearance: Moderate Distress (Patient appears as a moderately toxic 39-year-old female.), Obese HEENT: Normal ENT Inspection, Pharynx Normal, TMs Normal Neck: Full Range of Motion, Non-Tender, Normal, Normal Inspection Respiratory: Chest Non-Tender, Lungs Clear, No Accessory Muscle Use, No Respiratory Distress, Normal Breath Sounds Cardiovascular: No Edema, No JVD, No Murmur, No Gallop, Normal Peripheral Pulses, Regular Rate/Rhythm Breast Exam: Deferred Gastrointestinal: No Organomegaly, Non Tender, No Pulsatile Mass, Normal Bowel Sounds, Soft Genitalia: Deferred Pelvic: Deferred Rectal: Deferred Extremities: No calf tenderness, Normal capillary refill, Normal inspection, Normal range of motion, Non-tender, No pedal edema Neurologic: Alert, No Motor Deficits, Normal Affect, Normal Mood, No Sensory Deficits Cerebellar Function: Normal Reflexes: Normal Skin: Dry, Normal Color, Warm Lymphatic: No Adenopathy Was a procedure done? Was a procedure done?: No Differential Dx Considerations may include: Sepsis, electrolyte abnormality, viral illness, COVID-19, influenza, UTI X-Ray, Labs, Meds, VS Vital Signs Date Time Temp Pulse Resp B/P (MAP) Pulse Ox O2 Delivery O2 Flow Rate FiO2 10/27/24 17:44 97.6 74 16 109/56 (73) 98 97.6 10/27/24 17:44 74 16 98 Room Air 10/27/24 15:41 97.7 90 18 106/71 96 97.7 Lab Test 10/27/24 17:22 10/27/24 16:10 10/27/24 15:42 Range/Units Influenza Type A Antigen Negative Negative Influenza Type B Antigen Negative Negative SARS-CoV-2 Antigen (Rapid) Positive NEGATIVE White Blood Count 8.6 4.4-10.8 10^3/uL Red Blood Count 4.48 4.0-5.20 10^6/uL Hemoglobin 12.8 12.2-16.2 g/dL Hematocrit 37.9 36.0-46.0 % Mean Corpuscular Volume 84.5 80.0-100.0 fL Mean Corpuscular Hemoglobin 28.7 28.0-32.0 pg Mean Corpuscular Hemoglobin Concent 33.9 32.0-36.0 g/dL Red Cell Distribution Width 14.2 11.8-14.3 % Platelet Count 243 140-450 10^3/uL Mean Platelet Volume 8.9 6.9-10.8 fL Neutrophils (%) (Auto) 64.8 37.0-80.0 % Lymphocytes (%) (Auto) 24.9 10.0-50.0 % Monocytes (%) (Auto) 8.5 0.0-12.0 % Eosinophils (%) (Auto) 1.3 0.0-7.0 % Basophils (%) (Auto) 0.5 0.0-2.0 % Neutrophils # (Auto) 5.6 1.6-8.6 10 ^3/uL Lymphocytes # (Auto) 2.1 0.4-5.4 10 ^3/uL Monocytes # (Auto) 0.7 0-1.3 10 ^3/uL Eosinophils # (Auto) 0.1 0-0.8 10 ^3/uL Basophils # (Auto) 0 0-0.2 10 ^3/uL Nucleated Red Blood Cells 0.0 % Sodium Level 139 136-145 mmol/L Potassium Level 3.6 3.5-5.1 mmol/L Chloride Level 107 98-107 mmol/L Carbon Dioxide Level 25 20-31 mmol/L Anion Gap 7 5-15 Blood Urea Nitrogen 10 9-23 mg/dL Creatinine 0.63 0.550-1.02 mg/dL Glomerular Filtration Rate Calc 116 >90 mL/min BUN/Creatinine Ratio 15.9 10.0-20.0 Serum Glucose 93 74-106 mg/dL Calcium Level 8.6 L 8.7-10.4 mg/dL Urine Color Light-yellow Yellow Urine Clarity Clear Clear Urine pH 5.5 5.0-9.0 Urine Specific [place] 1.020 1.001-1.035 Urine Protein Negative Negative Urine Ketones Negative Negative Urine Blood 1+ H Negative /uL Urine Nitrite Negative Negative Urine Bilirubin Negative Negative Urine Urobilinogen Normal Negative mg/dL Urine Leukocyte Esterase Negative Negative /uL Urine RBC 6 0 - 4 /hpf Urine Microscopic WBC 2 0-5 /HPF Urine Squamous Epithelial Cells Few <5 /hpf Urine Bacteria None seen None Seen /hpf Urine Glucose Normal Normal mg/dL Current Medications Medications (Trade) Dose Ordered Sig/Beck Route Start Time Stop Time Status Last Admin Ketorolac Tromethamine (Toradol Injection) 30 mg ONCE ONCE IM 10/27/24 16:00 10/27/24 16:01 DC 10/27/24 17:35 X-Ray, Labs, Meds, VS Comment All studies performed the ED were evaluated by me personally. Serum studies were unremarkable for any systemic concerns as was urinalysis, but swabs confirmed a COVID-19 diagnosis. Patient has been advised to utilize Tylenol and or Motrin as needed as well as good hydration and healthy nutrition throughout illness event. Time of 1ST Reevaluation: 19:28 Reevaluation 1ST: Improved Consultation: PCP Patient Education/Counseling: Diagnosis, Treatment Family Education/Counseling: Diagnosis, Treatment SEPSIS Sepsis Screen Date sepsis recognized/suspect: Oct 27, 2024 Time Sepsis recognized/suspect: 1542 Recent Procedure: No On Antibiotic Therapy: No Respiratory Rate >20: No Heart Rate >90: No Temp<36 C (96.8 F) or >38.3 C: No SBP <90 or MAP <65 mmHG: No New Acute Mental Status Change: No Is the patient on CPAP, BIPAP,: No Vital Signs Date Time Temp Pulse Resp B/P (MAP) Pulse Ox O2 Delivery O2 Flow Rate FiO2 10/27/24 17:44 97.6 74 16 109/56 (73) 98 97.6 10/27/24 17:44 74 16 98 Room Air 10/27/24 15:41 97.7 90 18 106/71 96 97.7 Laboratory Tests Test 10/27/24 16:10 White Blood Count 8.6 10^3/uL (4.4-10.8) Medications Medications Dose Ordered Sig/Beck Route Start Time Stop Time Status Last Admin Dose Admin Ketorolac Tromethamine 30 mg ONCE ONCE IM 10/27/24 16:00 10/27/24 16:01 DC 10/27/24 17:35 Departure 1 Departure Time of Disposition: 19:29 Impression: Primary Impression: COVID-19 Disposition: 01 HOME / SELF CARE / HOMELESS Condition: Stable Additional Instructions: Advised Tylenol and or Motrin as needed for body aches as well as good hydration and healthy nutrition throughout. e-Prescriptions Ibuprofen (Ibuprofen) 600 Mg Tab 1 TAB PO Q6HP PRN, #20 TAB Prov: EDU MCNEAL PAC 10/27/24 Acetaminophen (Acetaminophen) 500 Mg Tab 500 MG PO Q4HP PRN, #30 TAB Prov: EDU MCNEAL PAC 10/27/24 Discharged With: Self, Friend Critical Care Note Critical Care Time?: No Stability Stability form required: No Heart Score Heart Score: Heart Score Response (Comments) Value History N/A 0 EKG N/A 0 Age N/A 0 Risk Factors N/A 0 Troponin N/A 0 Total 0 EDU MCNEAL PAC Oct 27, 2024 19:30
== END 2024-10-27 21:14 | disposition home or self-care (01) ==
LOC: ER 15:37
DX: U07.1 COVID-19 (principal)
CPT/HCPCS: 36415; 80048; 81001; 85025; 87426; 87804; 96372; 99283; J1885